=== PATIENT | male | born 1940 | race Caucasian/White ===

== ENCOUNTER 2016-09-13 12:49 | Emergency (ER) | payer MEDICARE, BC ==
--- NOTE | 2016-09-13 13:12 | Emergency Department Record ---
History of Present Illness - General Chief Complaint: Altered Mental Status Stated Complaint: DISORIENTED/DIABETIC Time Seen by Provider: 09/13/16 12:56 Source: Patient, Family Mode of Arrival: Ambulatory Limitations: No limitations - History of Present Illness Initial Comments: 75 yo male presents with confusion and odd behavior. His reports he was at his baseline at 10pm at bedtime. At 2m he woke with odd behavior. He was walking around the house shining a flashlight without purpose and unable to explain to his what his intent was. Throughout the day he has been answering questions with odd responses that are not the context of the conversation. He did off behaviors like laid down on the floor and could not explain why to his family. He is oriented to his name only. He was unable to explain that he was in a hospital. His response to the date was to repeatedly state he was in [place]. He denies pain. He has not meaningful insight into the events of the last 12 hours. MD Complaint: Altered mental status, Confusion Onset/Timin -: Awoke with symptoms (12) Severity: Moderate Consistency: Constant Context: Diabetes Associated Symptoms: Other - [place] Coma Scale Eye Response: (4) Open spontaneously Motor Response: (6) Obeys commands Verbal Response: (4) Confused conversation Lissette Total: 14 - Related Data Home Medications Medication Instructions Recorded Confirmed Last Taken Aspirin [Aspirin EC] 81 mg PO DAILY 03/14/16 09/13/16 03/13/16 Clopidogrel Bisulfate [Plavix] 75 mg PO DAILY 03/14/16 09/13/16 03/14/16 Insulin Glargine,Hum.rec.anlog 20 unit SQ QHS 03/14/16 09/13/16 03/13/16 [Lantus] Glyburide/Metformin HCl 1 each PO DAILY 03/15/16 09/13/16 03/14/16 08:00 [Glyburide-Metformin 2.5-500 mg] Nitroglycerin 0.2 mg TOP DAILY 03/15/16 09/13/16 03/14/16 08:00 Pravastatin Sodium 20 mg PO DAILY 03/15/16 09/13/16 03/14/16 08:00 Allergies Allergy/AdvReac Type Severity Reaction Status Date / Time Carbapenems Allergy Unknown HIVES Verified 09/13/16 13:02 Cephalosporins Allergy Unknown HIVES Verified 09/13/16 13:02 Penicillins Allergy Unknown RASH Verified 09/13/16 13:02 Iodine and Iodide Containing Allergy HIVES Verified 09/13/16 13:02 Produc Travel Screening - Travel/Exposure Within Last 30 Days Have you traveled within the last 30 days?: No Review of Systems ROS unobtainable: Due to mental status Past Medical History - SOCIAL HISTORY Smoking Status: Never smoker - RESPIRATORY Hx Respiratory Disorders: No - CARDIOVASCULAR Hx Cardio Disorders: Yes Hx Heart Attack: Yes - NEURO Hx Neuro Disorders: Yes Hx CVA: Yes - GI Hx GI Disorders: Yes Comment:: Bowel surgery - Hx Genitourinary Disorders: No - ENDOCRINE Hx Endocrine Disorders: Yes Hx Diabetes: Yes - MUSCULOSKELETAL Hx Musculoskeletal Disorders: Yes - PSYCH Hx Psych Problems: No - HEMATOLOGY/ONCOLOGY Hx Hematology/Oncology Disorders: No Physical Exam - General General Appearance: Alert, Cooperative, No acute distress, Other (Appears calm, inconsistent with following requests, clear speech, speaks in full sentences) Limitations: Altered mental status - Head Head exam: Atraumatic, Normocephalic, Normal inspection Head exam detail: negative: Abrasion, Contusion, General tenderness, Hematoma, Laceration - Eye Eye exam: Normal appearance, PERRL. negative: Conjunctival injection, Periorbital swelling - ENT ENT exam: Normal exam, Mucous membranes moist Ear exam: Normal external inspection Nasal Exam: Normal inspection Mouth exam: Normal external inspection Teeth exam: Normal inspection Throat exam: Normal inspection - Neck Neck exam: Normal inspection, Full ROM. negative: Lymphadenopathy, Tenderness - Respiratory Respiratory exam: Normal lung sounds bilaterally. negative: Respiratory distress - Cardiovascular Cardiovascular Exam: Regular rate, Normal rhythm, Normal heart sounds Peripheral Pulses: 2+: Radial (R), Radial (L) - GI/Abdominal GI/Abdominal exam: Soft. negative: Tenderness - Rectal Rectal exam: Deferred - exam: Deferred - Extremities Extremities exam: Normal inspection, Full ROM, Normal capillary refill. negative: Joint swelling, Pedal edema, Tenderness - Back Back exam: Reports: Normal inspection, Full ROM. 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 negative: Motor sensory deficit, Oriented X3 (Oriented to name only) - Psychiatric Psychiatric exam: negative: Agitated, Anxious, Normal affect, Normal mood - Skin Skin exam: Dry, Intact, Normal color, Warm. negative: Cyanosis, Diaphoretic, Erythema Course Vital Signs 09/13/16 12:59 Temperature 99.0 F Pulse Rate 74 Respiratory 18 Rate Blood Pressure 140/88 Pulse Ox 94 L - Reevaluation(s) Reevaluation #1: Accu Check is 86 09/13/16 13:14 Reevaluation #2: EKG 1317 NSr rate of 73, intervals normal with borderline QTc 467, axis normal, ST no acute changes, poor R wave prog. 09/13/16 13:26 Reevaluation #3: The labs were reviewed No acute changes on the CBC, CMP, pH, Acetone, Ammonia, Alcohol, Salicylate, Acetaminophen The HCT was reported as no acute process. 09/13/16 13:54 09/13/16 14:03 On recheck the patient is still confused. He knows his 's name, he know's his name, he is confused to date and time and circumstances. He is relaxing comfortably awake. He occasionally repeats himself or gives answers that do not pertain to the question. He does not show signs of focal weakness. His vision is intact on basic testing. 09/13/16 14:09 The patient ambulated with his cane at what his family considers his baseline. 09/13/16 14:09 Reevaluation #4: I discussed the case with the Neruo/Stroke physician at [facility] We discussed the abrupt changes in memory and behavior starting at 2am He recommends ER to ER transfer for neuro evaluation 09/13/16 15:32 The patient has been calm and cooperative in the ED He now became frustrated, pulled out his lines and leads He is verbally aggressive and will not redirect His speech is clear, no slurring, he is unchanged regarding his orientation is still to name only Accu check ordered If normal may need Zyprexa to calm as he is not verbally re-directable and staff is keeping him form leaving the bed/room I did speak with Dr Hsieh of [facility] ED She accepts the patient as a ED to ED transfer for further work up and neurology consultation Accu check 83 Given his continued anger with staff and physical aggression and not redirectable Zyprexa ordered and given 09/13/16 15:36 09/13/16 15:57 The patient is starting to calm. His daughter is able to calm him. He anger with the sight of me. His mental status is unchanged form presentation except his anger and frustration. 09/13/16 16:31 The patient is slowly calming and a little sleepy. He was able to recall his name, recall he has a and a daughter, and three grandchildren. His speech is now slowed and slurred due to the Zyprexa. HR 92, Room Air Oxygen 94-93%, 159/110. Will continue to assess for stability for transfer. Note the speech was clear prior to the medication. The risk of allowing him to continue to be physically aggressive and verbally aggressive necessitated medication for his safety and staff. 09/13/16 16:33 Reevaluation #5: Patient calmer but still argumentative at times wanting to leave. I discussed with the family the desire to keep the medications to minimum to not inhibit examination at [facility] but the patient becomes angry and becomes upset and aggressive with staff. 09/13/16 17:26 Medical Decision Making - Lab Data Result diagrams: 09/13/16 13:10 09/13/16 13:10 Disposition Disposition: Transfer Clinical Impression: Altered mental status Qualifiers: Altered mental status type: unspecified Qualified Code(s): R41.82 - Altered mental status, unspecified Disposition: Acute Care Hospital Transfer Transfer To: [facility] ED Reason For Transfer: Neurology consultation Accepting Physician: Jori Time Discussed w/Accepting Physician: 15:30 Condition: (2) Stable Forms: Patient Portal Access Time of Disposition: 15:59
[2016-09-13 13:19] LABS: BASO % 0.4 % (0-6); EOS % 0.6 % (0-6); GRAN % 79.8 % (47-80); HEMATOCRIT 44.9 % (42.0-52.0); HEMOGLOBIN 14.7 gm/dl (14.0-18.0); LYMPH % 11.1 % (16-45); MEAN CELL VOLUME 97.6 fl (81-97); MEAN CORPUSCULAR HGB CONC 32.7 g/dl (32-36); MONO % 8.1 % (0-9); PLATELET COUNT 226 K/uL (130-400); RED CELL DISTRIBUTION WIDTH 13.2 % (11.5-14.5); WHITE BLOOD COUNT W/O DIFF 7.1 K/uL (4.2-12.2)
[2016-09-13 13:30] LABS: ACETONE,SERUM NEGATIVE (NEGATIVE)
[2016-09-13 13:35] LABS: INR 0.98; PARTIAL THROMBOPLASTIN TIME 26.8 SECONDS (24.5-39.1); PROTHROMBIN TIME (PATIENT) 11.1 SECONDS (9.5-12.1)
[2016-09-13 13:37] LABS: AMMONIA < 8.7 umol/L (9-30)
[2016-09-13 13:40] LABS: BLOOD UREA NITROGEN 23 mg/dL (9-20); CREATININE 1.1 mg/dL (0.66-1.25); EST GLOMERULAR FILTRATION RATE > 60 ml/min; GLUCOSE,RANDOM 89 mg/dL (70-110)
[2016-09-13 13:42] LABS: ACETAMINOPHEN < 10.0 ug/mL (10.0-30.0); ALBUMIN 4.3 gm/dL (3.5-5.0); ALKALINE PHOSPHATASE 43 U/L (38-126); ALT/SGPT 32 U/L (21-72); AST/SGOT 39 U/L (17-59); SALICYLATE < 1.0 mg/dL (2.8-20.0); TOTAL PROTEIN 7.3 gm/dL (6.3-8.2)
[2016-09-13] MEDS: 0.9 % SODIUM CHLORIDE 1,000 ML BAG IV ONE (13:43)
[2016-09-13 14:24] LABS: URINE APPEARANCE CLEAR; URINE BILIRUBIN NEGATIVE (NEGATIVE); URINE BLOOD SMALL (NEGATIVE); URINE COLOR YELLOW; URINE GLUCOSE (UA) NEGATIVE (NEGATIVE); URINE KETONE NEGATIVE (NEGATIVE); URINE LEUKOCYTE ESTERASE NEGATIVE (NEGATIVE); URINE NITRITE NEGATIVE (NEGATIVE); URINE UROBILINOGEN 0.2 E.U./dL (0.20 - 1.00)
[2016-09-13 14:26] LABS: AMPHETAMINE SCREEN URINE NOT DETECTED; BARBITURATE SCREEN URINE NOT DETECTED; BENZODIAZEPINE SCREEN URINE NOT DETECTED; COCAINE SCREEN URINE NOT DETECTED; METHADONE SCREEN URINE NOT DETECTED; METHAMPHETAMINE SCREEN NOT DETECTED; OPIATE SCREEN URINE NOT DETECTED; OXYCODONE SCREEN URINE NOT DETECTED; PHENCYCLIDINE SCREEN URINE NOT DETECTED; PROPOXYPHENE SCREEN URINE NOT DETECTED; THC SCREEN URINE NOT DETECTED; TRICYCLIC ANTIDEPRESSANT SCRN NOT DETECTED
[2016-09-13 14:32] LABS: URINE BACTERIA NONE SEEN; URINE EPITHELIAL CELLS NONE SEEN (FEW); URINE RBC 0 - 2 (NONE SEEN); URINE WBC NONE SEEN (0-2/hpf)
[2016-09-13] MEDS: OLANZAPINE 10 MG VIAL IM ONE (15:54)
[2016-09-13] MEDS: LORAZEPAM 2 MG/ML VIAL IV ONE (17:02)
--- NOTE | 2016-09-14 09:07 | CT SCAN REPORT ---
EXAM: CT OF THE BRAIN WITHOUT CONTRAST HISTORY: CONFUSION. TECHNIQUE: Sequential axial images were obtained from the foramen magnum to the vertex without contrast administration. FINDINGS: The brain volume is normal. There is mild periventricular small vessel ischemia. No large territorial infarct, hemorrhage, mass effect, or midline shift. No extraaxial fluid collection. There is minimal maxillary sinus disease. IMPRESSION: 1. NO ACUTE INTRACRANIAL ABNORMALITY IS APPRECIATED. 2. MILD PERIVENTRICULAR SMALL VESSEL ISCHEMIA. 3. MILD MAXILLARY SINUS DISEASE. JOB NUMBER: [id number] [facility]
== END 2016-09-13 17:57 | disposition short-term general hospital (02) ==
LOC: ER 12:49
DX: R41.82 Altered mental status, unspecified (principal); E11.9 Type 2 diabetes mellitus without complications; I10 Essential (primary) hypertension; I25.2 Old myocardial infarction; I69.911 Memory deficit following unspecified cerebrovascular disease; Z95.1 Presence of aortocoronary bypass graft; Z79.4 Long term (current) use of insulin
CPT/HCPCS: 99285 ×2; 96374; 96372; 96361; 82800; 82140; 85025; 85730; 85610; 80076; 80048; 36416; 81001; 82009; 82948; 84443; 80305; 70450; 93005; 93010; G0480 ×3; J2060; 80320; 80329; J7030

== ENCOUNTER 2016-10-03 03:17 | Emergency (ER) | payer MEDICARE, BC ==
[2016-10-03 03:53] LABS: HEMATOCRIT 28.2 % (42.0-52.0); HEMOGLOBIN 10.2 gm/dl (14.0-18.0); MEAN CELL VOLUME 102.2 fl (81-97); MEAN CORPUSCULAR HGB CONC 36.2 g/dl (32-36); MEAN PLATELET VOLUME 9.3 fl (7.4-10.4); PLATELET COUNT 394 K/uL (130-400); RED BLOOD COUNT 2.76 M/uL (4.40-5.70); RED CELL DISTRIBUTION WIDTH 13.1 % (11.5-14.5)
--- NOTE | 2016-10-03 03:53 | Emergency Department Record ---
History of Present Illness - General Chief complaint: Hypergylcemia Stated complaint: HIGH BLOOD SUGAR Time Seen by Provider: 10/03/16 03:39 Source: Patient Mode of Arrival: Ambulatory Limitations: No limitations - History of Present Illness Initial comments: 75 yo male presents to ED with a CC of elevated blood sugar. Patient reports that his blood sugar has been running in the 400-500 range for the past several days. Patient was recently admitted to [facility] for 18 days following stroke and CEA. Patient reports that his blood sugar was not controlled while in the hospital either. Onset/Timin -: Week(s) Location: Generalized Severity: Moderate Consistency: Intermittent Improves with: Other (Insulin) Worsens with: None Associated Symptoms: Denies other symptoms - [place] Coma Scale Eye Response: (4) Open spontaneously Motor Response: (6) Obeys commands Verbal Response: (5) Oriented [place] Total: 15 - Symptoms of Stroke Baseline State: Baseline State - Related Data Home Medications Medication Instructions Recorded Confirmed Last Taken Amlodipine Besylate 5 mg PO DAILY 10/03/16 10/03/16 10/02/16 Aspirin [Adult Low Dose Aspirin EC] 81 mg PO DAILY 10/03/16 10/03/16 10/02/16 Atorvastatin Calcium 40 mg PO QHS 10/03/16 10/03/16 10/02/16 Carvedilol [Coreg] 6.25 mg PO BID 10/03/16 10/03/16 10/02/16 Clopidogrel Bisulfate [Clopidogrel] 75 mg PO DAILY 10/03/16 10/03/16 10/02/16 Hydrocodone/Acetaminophen [Mayer 1 tab PO Q6H PRN 10/03/16 10/03/16 Unknown 5mg/325mg] Insulin Glargine,Hum.rec.anlog 20 units SQ BID 10/03/16 10/03/16 10/02/16 [Lantus] Lisinopril 2.5 mg PO DAILY 10/03/16 10/03/16 10/02/16 Magnesium Oxide [Mag Ox] 400 mg PO BID 10/03/16 10/03/16 10/02/16 Metformin HCl 500 mg PO BID 10/03/16 10/03/16 10/02/16 Allergies Allergy/AdvReac Type Severity Reaction Status Date / Time Carbapenems Allergy Unknown HIVES Verified 09/13/16 13:02 Cephalosporins Allergy Unknown HIVES Verified 09/13/16 13:02 Penicillins Allergy Unknown RASH Verified 09/13/16 13:02 Iodine and Iodide Containing Allergy HIVES Verified 09/13/16 13:02 Produc Travel Screening - Travel/Exposure Within Last 30 Days Have you traveled within the last 30 days?: No Review of Systems Constitutional: Denies: Chills, Fever, Malaise, Night sweats Eyes: Denies: Eye discharge, Eye pain ENT: Denies: Congestion, Ear pain, Epistaxis Respiratory: Denies: Cough, Dyspnea Cardiovascular: Denies: Chest pain, Dyspnea on exertion Endocrine: Denies: Fatigue, Heat or cold intolerance Gastrointestinal: Denies: Abdominal pain, Nausea, Vomiting Genitourinary: Denies: Incontinence, Retention Musculoskeletal: Denies: Arthralgia, Back pain, Gout, Joint swelling Skin: Denies: Bruising, Change in color Neurological: Denies: Abnormal gait, Confusion, Headache, Seizure Psychiatric: Denies: Anxiety Hematological/Lymphatic: Denies: Anemia, Blood Clots Past Medical History - SOCIAL HISTORY Smoking Status: Never smoker Alcohol Use: None Drug Use: None - RESPIRATORY Hx Respiratory Disorders: Yes Hx COPD: Yes - CARDIOVASCULAR Hx Cardio Disorders: Yes Hx Heart Attack: Yes - NEURO Hx Neuro Disorders: Yes Hx CVA: Yes ("mini stroke") - GI Hx GI Disorders: Yes Comment:: Bowel surgery - Hx Genitourinary Disorders: No - ENDOCRINE Hx Endocrine Disorders: Yes Hx Diabetes: Yes - MUSCULOSKELETAL Hx Musculoskeletal Disorders: Yes - PSYCH Hx Psych Problems: No - HEMATOLOGY/ONCOLOGY Hx Hematology/Oncology Disorders: No Family Medical History Any Significant Family History?: Yes Hx Diabetes: Father, Brother/Sister Hx Heart Disease: Mother Physical Exam - General General Appearance: Alert, Oriented x3, Cooperative, No acute distress Limitations: No limitations - Head Head exam: Atraumatic, Normocephalic, Normal inspection Head exam detail: negative: Abrasion, Contusion, Fritz's sign, General tenderness, Hematoma, Laceration - Eye Eye exam: Normal appearance. negative: Conjunctival injection, Periorbital swelling, Periorbital tenderness, Scleral icterus - ENT Ear exam: negative: Auricular hematoma, Auricular trauma Nasal Exam: negative: Active bleeding, Discharge, Dried blood, Foreign body Mouth exam: negative: Drooling, Laceration, Muffled voice, Tongue elevation - Neck Neck exam: Other (Recent surgery to the left neck). negative: Meningismus, Tenderness - Respiratory Respiratory exam: Normal lung sounds bilaterally. negative: Rales, Respiratory distress, Rhonchi, Stridor - Cardiovascular Cardiovascular Exam: Regular rate, Normal rhythm, Normal heart sounds - GI/Abdominal GI/Abdominal exam: Soft. negative: Rebound, Rigid, Tenderness - Rectal Rectal exam: Deferred - exam: Deferred - Extremities Extremities exam: negative: Pedal edema, Tenderness - Back Back exam: Denies: CVA tenderness (R), CVA tenderness (L) - Neurological Neurological exam: Alert, Normal gait, Oriented X3 - Psychiatric Psychiatric exam: Normal affect, Normal mood - Skin Skin exam: Normal color. negative: Abrasion Type of lesion: negative: abrasion Course Vital Signs 10/03/16 10/03/16 03:22 03:45 Temperature 99.6 F Pulse Rate 65 Respiratory 20 Rate Blood Pressure 116/60 Pulse Ox 84 L 97 - Reevaluation(s) Reevaluation #1: 10/03/16 03:51 Vitals reviewed, biox 84% is on RA, however patient is on 2L NC at home that was begun following his while in the hospital. On 2 Liters, patient's biox is 97%. Reevaluation #2: 10/03/16 04:22 Labs reviewed, Hgb 10.2/HCT 28.2, Potassium 5.2, BUN 33 (baseline 28) Creatinine 1.4. Glucose 413. Reevaluation #3: 10/03/16 05:02 Repeat Accucheck following Insulin SQ 1 hours ago reveals glucose or 402. Will administer 5 Units IV as well as IVFs and re-evaluate. Reevaluation #4: 10/03/16 05:58 Repeat Accucheck down to 254. Patient appears stable for discharge at this time. Medical Decision Making - Lab Data Result diagrams: 10/03/16 03:35 10/03/16 03:35 Lab Results 10/03/16 Range/Units 03:26 POC Glucose 417 H (70-110) mg/dL Disposition Disposition: Discharge Clinical Impression: Hyperglycemia Disposition: Home, Self-Care Condition: (2) Stable Instructions: Diabetic Hyperglycemia (ED) Additional Instructions: Return to ED if your symptoms worsen or if you have any concerns. Call your family doctor today for further recommendations regarding your elevated blood sugar. Forms: Patient Portal Access Time of Disposition: 05:59 Quality - Quality Measures Quality Measures: N/A - Blood Pressure Screening Blood Pressure Classification: Normal BP Reading Systolic Measurement: 116 Diastolic Measurement: 60 Screening for High Blood Pressure: < Normal BP, F/U Not Required > [G8783] Normal BP Follow-up Interventions: No follow-up required
[2016-10-03 03:55] LABS: MEAN CORPUSCULAR HEMOGLOBIN 36.9 pg (27-33)
[2016-10-03] MEDS: HUMULIN R 100 UNIT/ML VIAL SQ ONE (04:00)
[2016-10-03 04:07] LABS: ANION GAP 5.9 (7-16); CARBON DIOXIDE 34.1 mmol/L (22-30); CREATININE 1.4 mg/dL (0.66-1.25)
[2016-10-03] MEDS: 0.9 % SODIUM CHLORIDE 1000ML 500 ML IV SCH (05:12)
[2016-10-03] MEDS: HUMULIN R 100 UNIT/ML VIAL IV ONE (05:12)
== END 2016-10-03 06:08 | disposition home or self-care (01) ==
LOC: ER 03:17
DX: E11.65 Type 2 diabetes mellitus with hyperglycemia (principal); J44.9 Chronic obstructive pulmonary disease, unspecified; Z99.81 Dependence on supplemental oxygen; Z79.4 Long term (current) use of insulin; Z86.73 Personal history of transient ischemic attack (TIA), and cerebral infarction without residual deficits; I25.2 Old myocardial infarction
CPT/HCPCS: 36416; 80048; 82948; 85027; 96372; 96374; 99284; J7030

== ENCOUNTER 2018-10-24 07:35 | Emergency (ER) | payer MEDICARE ==
--- NOTE | 2018-10-24 07:57 | Emergency Department Record ---
History of Present Illness - General Chief complaint: Hemorrhoids Stated complaint: HEMROIDS Time Seen by Provider: 10/24/18 07:42 Source: Patient Mode of Arrival: Ambulatory Limitations: No limitations - History of Present Illness Initial comments: The patient has a hx of hemorrhoids and they popped out yesterday. Since he has been unable to put them back in and they are mildly painful. He denies any AP, nausea, vomiting, or fever. MD complaint: Other Onset/Timin -: Days(s) Quality: Burning Consistency: Constant Improves with: None Worsens with: None Context: Hemorrhoids Associated Symptoms: Denies other symptoms Treatments Prior to Arrival: None - Related Data Home Medications Medication Instructions Recorded Confirmed Last Taken Glyburide/Metformin HCl 1 each PO BID 10/24/18 10/24/18 Unknown [Glyburide-Metformin 5-500 mg] Isosorbide Dinitrate 30 mg PO DAILY 10/24/18 10/24/18 Unknown Previous Rx's Medication Instructions Recorded Pramoxine HCl [Proctofoam] 15 gm TP BID #1 foam 10/24/18 Allergies Allergy/AdvReac Type Severity Reaction Status Date / Time Carbapenems Allergy Unknown HIVES Verified 10/24/18 07:45 Cephalosporins Allergy Unknown HIVES Verified 10/24/18 07:45 Penicillins Allergy Unknown RASH Verified 10/24/18 07:45 Iodine and Iodide Containing Allergy HIVES Verified 10/24/18 07:45 Produc Travel Screening - Travel/Exposure Within Last 30 Days Have you traveled within the last 30 days?: No Review of Systems Constitutional: Denies: Chills, Fever Past Medical History - SOCIAL HISTORY Smoking Status: Never smoker Alcohol Use: None Drug Use: None - RESPIRATORY Hx Respiratory Disorders: Yes Hx COPD: Yes - CARDIOVASCULAR Hx Cardio Disorders: Yes Hx Heart Attack: Yes - NEURO Hx Neuro Disorders: Yes Hx CVA: Yes ("mini stroke") - GI Hx GI Disorders: Yes Comment:: Bowel surgery - Hx Genitourinary Disorders: No - ENDOCRINE Hx Endocrine Disorders: Yes Hx Diabetes: Yes - MUSCULOSKELETAL Hx Musculoskeletal Disorders: Yes - PSYCH Hx Psych Problems: No - HEMATOLOGY/ONCOLOGY Hx Hematology/Oncology Disorders: No Family Medical History Any Significant Family History?: Yes Hx Diabetes: Father, Brother/Sister Hx Heart Disease: Mother Physical Exam - General General Appearance: Alert, Oriented x3, Cooperative, No acute distress - Head Head exam: Atraumatic - Neck Neck exam: Normal inspection, Full ROM. negative: Tenderness - Respiratory Respiratory exam: Normal lung sounds bilaterally. negative: Respiratory distress - Cardiovascular Cardiovascular Exam: Regular rate, Normal rhythm, Normal heart sounds - GI/Abdominal GI/Abdominal exam: Soft, Normal bowel sounds. negative: Rebound, Rigid, Tenderness - Rectal Rectal exam: Hemorrhoids (There are 2 hemorrhoids that are external and mildly pedunculated. There is no surrounding tenderness. The hemorrhoids are not thrombosed.) - Neurological Neurological exam: Alert. negative: Motor sensory deficit Course Vital Signs 10/24/18 07:42 Temperature 97.9 F Pulse Rate 72 Respiratory 16 Rate Blood Pressure 119/74 Pulse Ox 99 - Reevaluation(s) Reevaluation #1: I did explain to the patient that we will be unable to help him here in the ER but we did get him an appointment with Dr. Dela Cruz for Saturday. 10/24/18 07:59 Disposition Disposition: Discharge Clinical Impression: External hemorrhoid Disposition: Home, Self-Care Condition: (2) Stable Instructions: Hemorrhoids (ED) Additional Instructions: Please use the Proctofoam as directed and please keep your appointment with Dr. Dela Cruz for Saturday in the Specialty clinic. Prescriptions: Pramoxine HCl [Proctofoam] 15 gm TP BID #1 foam Referrals: [facility] [Provider Group] Forms: Patient Portal Access Quality - Quality Measures Quality Measures: N/A - Blood Pressure Screening View Details: Yes Does Patient Have Any of the Following: No Blood Pressure Classification: Normal BP Reading Systolic Measurement: 119 Diastolic Measurement: 74 Screening for High Blood Pressure: < Normal BP, F/U Not Required > [G8783]
== END 2018-10-24 08:22 | disposition home or self-care (01) ==
LOC: ER 07:35
DX: K64.4 Residual hemorrhoidal skin tags (principal)
CPT/HCPCS: 99283

== ENCOUNTER 2018-11-03 10:04 | Day surgery (SDC) | payer MEDICARE ==
[~2018-11-03 10:04] MED LIST: ACETAMINOPHEN 1,000 MG/100 ML BTL IVPB ONE
[2018-11-03] MEDS ORDERED: LIDOCAINE 2% MDV (20MG/ML) 20ML VIAL IV ONE (10:05)
[2018-11-03] MEDS ORDERED: KETAMINE HCL 100MG/1ML VIAL INJ ONE (10:05)
[2018-11-03] MEDS ORDERED: GELATIN SPONGE,ABSORBABLE 12-7MM TP ONE (10:05)
[2018-11-03] MEDS ORDERED: PROPOFOL 10 MG/ML VIAL IV ONE (10:05)
[2018-11-03] MEDS ORDERED: RINGERS SOLUTION,LACTATED 1,000 ML IV ONE (10:35)
[2018-11-03] MEDS ORDERED: CLINDAMYCIN 600MG/50ML PREMIX 600 MG/50 ML BAG IVPB ONE (10:52)
[2018-11-03] MEDS ORDERED: BUPIVACAINE 0.25% W/EPI MPF 30ML VIAL SQ ONE (11:03)
[2018-11-03] MEDS ORDERED: DIBUCAINE 30 GM TUBE TOP ONE (11:03)
[2018-11-03] MEDS ORDERED: BUPIVACAINE LIPOSOME 266MG/20ML VIAL SQ ONE (11:03)
--- NOTE | 2018-11-04 13:30 | Operative Note ---
DATE OF SURGERY: 11/03/2018 SURGEON: Monroe Dela Cruz DO PREOPERATIVE DIAGNOSES: 1. Grade 3 hemorrhoids. 2. Mild rectal prolapse. POSTOPERATIVE DIAGNOSES: 1. Grade 3 hemorrhoids. 2. Mild rectal prolapse. OPERATION: Internal and external hemorrhoidectomy. INDICATION: The patient is a 77-year-old male who has been having issues with hemorrhoids for quite some time. He is on Plavix, does bleed occasionally. He has tried many topical treatments as well as suppositories without relief. We did discuss hemorrhoidectomy. Risks, benefits, and alternatives were discussed. Risks include bleeding, acute or chronic pain, recurrence. He understood this fully. We also discussed element of rectal prolapse which would not be solved with hemorrhoidectomy. He understands this fully. Thereafter, consent was signed and questions answered. PROCEDURE: The patient was taken to the operating room and placed in a supine position. General anesthesia was administered per the department of anesthesia. The patient was rotated into lithotomy position. His perianal region was prepped and draped in the usual fashion. At this time, a 4-quadrant anal block was done with 20 mL of Exparel. A bivalve speculum was placed at the 3 main complexes. Each one was ligated with DAVID Harmonic. Each one was oversewn with 2-0 Vicryl in a running locking fashion. The patient seemed to bleed a bit from the needle pokes and it took some pressure to become hemostatic. At this time, dibucaine and Gelfoam were placed. He was taken to the recovery room in stable condition. He was given instructions to hold his Plavix 2 more days. I will see him back in about 2 weeks. He is going to call me with any problems. Thank you for this referral. MARISELA
== END 2018-11-03 13:10 | disposition home or self-care (01) ==
LOC: SUR 10:04
PROVIDERS: ATTEND Surgery
DX: K64.2 Third degree hemorrhoids (principal); K62.3 Rectal prolapse; E11.9 Type 2 diabetes mellitus without complications; I10 Essential (primary) hypertension; Z79.01 Long term (current) use of anticoagulants; E78.00 Pure hypercholesterolemia, unspecified; J44.9 Chronic obstructive pulmonary disease, unspecified; I25.10 Atherosclerotic heart disease of native coronary artery without angina pectoris; R01.1 Cardiac murmur, unspecified; Z95.1 Presence of aortocoronary bypass graft; Z95.5 Presence of coronary angioplasty implant and graft; Z86.73 Personal history of transient ischemic attack (TIA), and cerebral infarction without residual deficits; Z87.891 Personal history of nicotine dependence
CPT/HCPCS: 36416; 82948; 93005; J3490; J7120

== ENCOUNTER 2018-12-16 19:04 | Emergency (ER) | payer MEDICARE ==
[2018-12-16 21:22] LABS: ABSOLUTE NEUTROPHIL COUNT 3.11; BASO % 0.9 % (0-6); EOS % 5.4 % (0-6); GRAN % 67.3 % (47-80); HEMATOCRIT 37.7 % (42.0-52.0); HEMOGLOBIN 12.1 gm/dl (14.0-18.0); LYMPH % 19.3 % (16-45); MEAN CELL VOLUME 104.1 fl (81-97); MEAN CORPUSCULAR HEMOGLOBIN 33.4 pg (27-33); MEAN CORPUSCULAR HGB CONC 32.1 g/dl (32-36); MONO % 7.1 % (0-9); PLATELET COUNT 207 K/uL (130-400); RED BLOOD COUNT 3.62 M/uL (4.40-5.70); RED CELL DISTRIBUTION WIDTH 14.7 % (11.5-14.5); WHITE BLOOD COUNT W/O DIFF 4.6 K/uL (4.2-12.2)
[2018-12-16 21:31] LABS: BILIRUBIN,TOTAL 0.4 mg/dL (0.2-1.0); CREATININE 1.5 mg/dL (0.7-1.2); INR 1.1; PROTHROMBIN TIME (PATIENT) 11.2 SECONDS (9.5-12.1)
[2018-12-16 21:36] LABS: ALB/GLOB RATIO 1.5 (1.1-1.8); ALBUMIN 4.2 g/dL (4.0-5.0)
[2018-12-16] MEDS ORDERED: DOCUSATE SODIUM 100 MG CAPSULE PO ONE (21:46)
--- NOTE | 2018-12-16 21:57 | Emergency Department Record ---
History of Present Illness - General Chief complaint: Rectal bleeding Stated complaint: BLEEDING RECTUM Time Seen by Provider: 12/16/18 21:19 Source: Patient Mode of Arrival: Ambulatory Limitations: No limitations - History of Present Illness Initial comments: pt states he was straining to go to the bathroom and had some bleeding from his rectum. it was mild. he is not currently bleeding. he had recent hemorrhoid surgery. he has not been taking stool softeners. he said after he applied preparation h he was much better MD complaint: Blood on toilet paper -: Unknown Radiation: None Consistency: Constant Improves with: None Worsens with: None Context: History of GI bleed, Blood thinners, Hemorrhoids Associated Symptoms: Abdominal pain Treatments Prior to Arrival: None - Related Data Previous Rx's Medication Instructions Recorded Pramoxine HCl [Proctofoam] 15 gm TP BID #1 foam 10/24/18 Docusate Sodium [Colace] 100 mg PO BID #20 cap 12/16/18 Allergies Allergy/AdvReac Type Severity Reaction Status Date / Time Carbapenems Allergy Unknown HIVES Verified 10/24/18 07:45 Cephalosporins Allergy Unknown HIVES Verified 10/24/18 07:45 Penicillins Allergy Unknown RASH Verified 10/24/18 07:45 Iodine and Iodide Containing Allergy HIVES Verified 10/24/18 07:45 Produc Travel Screening - Travel/Exposure Within Last 30 Days Have you traveled within the last 30 days?: No - Travel Symptoms Symptom Screening: None Review of Systems Reviewed: No additional complaints except as noted below Constitutional: Reports: As per HPI. Denies: Chills, Fever, Malaise, Night sweats, Weakness, Weight change Eyes: Reports: As per HPI. Denies: Eye discharge, Eye pain, Photophobia, Vision change ENT: Reports: As per HPI. Denies: Congestion, Dental pain, Ear pain, Epistaxis, Hearing loss, Throat pain Respiratory: Reports: As per HPI. Denies: Cough, Dyspnea, Hemoptysis, Stridor, Wheezes Cardiovascular: Reports: As per HPI. Denies: Arrhythmia, Chest pain, Dyspnea on exertion, Edema, Murmurs, Orthopnea, Palpitations, Paroxysmal nocturnal dyspnea, Rheumatic Fever, Syncope Endocrine: Reports: As per HPI. Denies: Fatigue, Heat or cold intolerance, Polydipsia, Polyuria Gastrointestinal: Reports: As per HPI. Denies: Abdominal pain, Constipation, Diarrhea, Hematemesis, Hematochezia, Melena, Nausea, Vomiting Genitourinary: Reports: As per HPI. Denies: Dysuria, Frequency, Hematuria, I ncontinence, Retention, Testicular pain, Testicular mass, Urgency Musculoskeletal: Reports: As per HPI. Denies: Arthralgia, Back pain, Gout, Joint swelling, Myalgia, Neck pain Skin: Reports: As per HPI. Denies: Bruising, Change in color, Change in hair/nails, Lesions, Pruritus, Rash Neurological: Reports: As per HPI. Denies: Abnormal gait, Confusion, Headache, Numbness, Paresthesias, Seizure, Tingling, Tremors, Vertigo, Weakness Psychiatric: Reports: As per HPI. Denies: Anxiety, Auditory hallucinations, Depression, Homicidal thoughts, Suicidal thoughts, Visual hallucinations Hematological/Lymphatic: Reports: As per HPI. Denies: Anemia, Blood Clots, Easy bleeding, Easy bruising, Swollen glands Past Medical History - SOCIAL HISTORY Smoking Status: Former smoker Alcohol Use: None Drug Use: None - RESPIRATORY Hx Respiratory Disorders: Yes Hx Sleep Apnea: Yes Hx of CPAP: No - CARDIOVASCULAR Hx Cardio Disorders: Yes Hx Abnormal EKG: Yes Hx Cardiac Cath: Yes Hx Chest Pain: No (NOTHING RECENT) Hx Heart Attack: Yes Hx Hypertension: Yes (ON MEDS WITH GOOD CONTROL) Hx Coronary Artery Disease: Yes Hx Coronary Artery Bypass Graft: Yes (1995) Hx Coronary Stent: Yes (1992) - NEURO Hx Neuro Disorders: Yes Hx CVA: Yes (1992) Hx TIA: Yes (2015) Comment:: POOR MEMORY - GI Hx GI Disorders: Yes Hx Reflux: Yes Hx Obstructive Bowel: Yes (SMALL BOWEL HAD RESECTION) - Hx Genitourinary Disorders: No - ENDOCRINE Hx Endocrine Disorders: Yes Hx Diabetes: Yes (DX'D 1999) Comment:: BLOOD SUGARS AROUND 100 GOES LOW SOMETIMES - MUSCULOSKELETAL Hx Musculoskeletal Disorders: Yes Hx Arthritis: Yes (HANDS AND KNEES) - PSYCH Hx Psych Problems: Yes Hx Anxiety: Yes (MILD) Hx Depression: Yes (MILD) - HEMATOLOGY/ONCOLOGY Hx Hematology/Oncology Disorders: Yes Hx Blood Transfusions: Yes Hx Blood Transfusion Reaction: No Family Medical History Any Significant Family History?: Yes Hx Diabetes: Father, Brother/Sister Hx Heart Disease: Mother Physical Exam - General General Appearance: Alert, Oriented x3, Cooperative, No acute distress - Head Head exam: Normal inspection - Eye Eye exam: Normal appearance, PERRL, EOMI Pupils: Normal accommodation - ENT ENT exam: Normal exam, Mucous membranes moist, Normal external ear exam, Normal orophraynx Ear exam: Normal external inspection. negative: External canal tenderness Nasal Exam: Normal inspection. negative: Discharge, Sinus tenderness Mouth exam: Normal external inspection, Tongue normal Teeth exam: Normal inspection. negative: Dental caries Throat exam: Normal inspection. negative: Tonsillar erythema, Tonsillar exudate - Neck Neck exam: Normal inspection, Full ROM. negative: Tenderness - Respiratory Respiratory exam: Normal lung sounds bilaterally. negative: Respiratory distress - Cardiovascular Cardiovascular Exam: Normal rhythm, Normal heart sounds, Bradycardia - GI/Abdominal GI/Abdominal exam: Soft, Normal bowel sounds. negative: Tenderness - Rectal Rectal exam: Other (post op on hernias. no bleeding) - exam: Deferred - Extremities Extremities exam: Normal inspection, Full ROM, Normal capillary refill. negative: Tenderness - Back Back exam: Reports: Normal inspection, Full ROM. Denies: Muscle spasm, Rash noted, Tenderness - Neurological Neurological exam: Alert, CN II-XII intact, Normal gait, Oriented X3 - Psychiatric Psychiatric exam: Normal affect, Normal mood - Skin Skin exam: Dry, Intact, Normal color, Warm Course Vital Signs 12/16/18 12/16/18 20:49 20:57 Temperature 98.5 F 98.5 F Pulse Rate 84 Pulse Rate [ 56 L Left] Respiratory 16 16 Rate Blood Pressure 144/79 Blood Pressure 143/85 [Left Arm] Pulse Ox 95 95 Medical Decision Making - Lab Data Result diagrams: 12/16/18 20:50 12/16/18 20:50 Lab Results 12/16/18 12/16/18 12/16/18 Range/Units 20:50 20:50 20:50 WBC 4.6 (4.2-12.2) K/uL RBC 3.62 L (4.40-5.70) M/uL Hgb 12.1 L (14.0-18.0) gm/dl Hct 37.7 L (42.0-52.0) % MCV 104.1 H (81-97) fl MCH 33.4 H (27-33) pg MCHC 32.1 (32-36) g/dl RDW 14.7 H (11.5-14.5) % Plt Count 207 (130-400) K/uL MPV 9.0 (7.4-10.4) fl Gran % 67.3 (47-80) % Lymphocytes % 19.3 (16-45) % Monocytes % 7.1 (0-9) % Eosinophils % 5.4 (0-6) % Basophils % 0.9 (0-6) % Absolute Neutrophils 3.11 PT 11.2 (9.5-12.1) SECONDS INR 1.1 Sodium 137 (136-145) mmol/L Potassium 5.4 H (3.4-4.5) mmol/L Chloride 98 (98-107) mmol/L Carbon Dioxide 31.0 H (22-29) mmol/L Anion Gap 8.0 (7-16) BUN 32 H (8-23) mg/dL Creatinine 1.5 H (0.7-1.2) mg/dL Estimated GFR 48 mL/min Random Glucose 162 H (74-109) mg/dL Calcium 9.2 (8.8-10.2) mg/dL Total Bilirubin 0.40 (0.2-1.0) mg/dL AST 22 (10.0-50.0) U/L ALT 9 (<41) U/L Alkaline Phosphatase 41 (40-129) U/L Total Protein 7.0 (6.6-8.7) g/dL Albumin 4.2 (4.0-5.0) g/dL Globulin 2.8 (1.4-4.8) gm/dL Albumin/Globulin Ratio 1.5 (1.1-1.8) Disposition Disposition: Discharge Clinical Impression: History of rectal bleeding Disposition: Home, Self-Care Condition: (1) Good Instructions: Rectal Bleeding (ED) Additional Instructions: ollow up with family doctor and with dr mcnally tomorrow. return sooner if worse. take stool softener daily Prescriptions: Docusate Sodium [Colace] 100 mg PO BID #20 cap Quality - Quality Measures Quality Measures: N/A - Blood Pressure Screening Does Patient Have Any of the Following: Active Dx of HTN Blood Pressure Classification: Hypertensive Reading Systolic Measurement: 144 Diastolic Measurement: 79 Screening for High Blood Pressure: Patient Exclusion, Hx of HTN [G9744]
== END 2018-12-16 22:05 | disposition home or self-care (01) ==
LOC: ER 19:04
DX: K62.5 Hemorrhage of anus and rectum (principal); I10 Essential (primary) hypertension; I25.2 Old myocardial infarction; Z87.891 Personal history of nicotine dependence; Z98.890 Other specified postprocedural states
CPT/HCPCS: 80053; 85025; 85610; 99283